=== PATIENT | female | born 1950 | race Caucasian/White ===

== ENCOUNTER 2017-11-27 18:38 | Emergency (ER) | payer OTHER ==
[2017-11-27 18:43] VITALS: BP 164/64; PULSE 80; RESP 18; TEMP 97.9; O2SAT 99
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
== END 2017-11-27 22:46 | disposition home or self-care (01) ==
LOC: H.ER 18:38
DX: S00.83XA Contusion of other part of head, initial encounter (principal); M79.642 Pain in left hand; S60.512A Abrasion of left hand, initial encounter; S80.01XA Contusion of right knee, initial encounter; S80.211A Abrasion, right knee, initial encounter; V01.00XA Pedestrian on foot injured in collision with pedal cycle in nontraffic accident, initial encounter; Y92.410 Unspecified street and highway as the place of occurrence of the external cause